=== PATIENT | male | born 1990 | race Caucasian/White ===

== ENCOUNTER 2020-09-16 15:01 | Emergency (ER) | payer BC, SELFPAY ==
[2020-09-16 15:09] VITALS: BP 184/108; PULSE 94; RESP 18; TEMP 36.9; O2SAT 99
[2020-09-16] MEDS: HYDROcodone/acetaminophen (*CRX) 5-325 MG TABLET 1 TAB PO (16:12)
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
== END 2020-09-16 17:00 | disposition home or self-care (01) ==
PROVIDERS: Emergency Provider Emergency Medicine
DX: H60.91 Unspecified otitis externa, right ear (principal)
CPT/HCPCS: 99283; A9270

== ENCOUNTER 2020-09-18 10:55 | Emergency (ER) | payer BC, SELFPAY ==
[2020-09-18 11:00] VITALS: BP 164/94; PULSE 95; RESP 18; TEMP 37; O2SAT 98
--- NOTE | 2020-09-18 11:37 | ED.GENADULT ---
HPI - General Adult General Chief complaint: Ear Stated complaint: right ear pain Time Seen by Provider: 09/18/20 11:26 Source: patient, RN notes reviewed and old records reviewed Mode of arrival: ambulatory Limitations: no limitations History of Present Illness HPI narrative: Patient a 30-year-old male who presents with right ear pain was seen Saturday diagnosed with otitis externa presents today with continued pain noting that the ear wick fell out on the first day patient denies any worsening symptoms continued symptoms are noted to include right ear pain discomfort worse with activity and movement patient denies any vomiting or other URI symptoms Related Data Allergies Allergy/AdvReac Type Severity Reaction Status Date / Time No Known Allergies Allergy Verified 09/18/20 11:03 Review of Systems Review of Systems: All systems reviewed & are unremarkable except as noted in HPI and below PMFSH Social History Social History Smoking status: Never smoker Gender identity (if verbalized by the patient): Male Exam Narrative: Exam Narrative: GENERAL: Well-appearing, well-nourished, and in no acute distress. HEAD: Normocephalic, atraumatic. EYES: PERRLA and EOMI. ENT: Nares clear, no rhinorrhea or epistaxis. Mucous membranes moist. Oropharynx without tonsillar hypertrophy exudate or other lesions. Left ear canal patent no abnormality noted nonbulging TM. Right external canal swollen with dry exudate no surrounding erythema in the periauricular regiones. EXTREMITIES: Normal range of motion. No edema. SKIN: Warm, dry, no rash. NEURO: No focal deficits. Alert and oriented x3. Cranial nerves II through XII grossly intact PSYCH: Normal mood and affect. Course Course Emergency Course: Patient in the room no distress aware of case findings treatment plan diagnosis agreeing to follow-up as instructed Vital Signs Vital signs: Vital Signs Temperature 98.6 F 09/18/20 11:00 Pulse Rate 95 09/18/20 11:00 Respiratory Rate 18 09/18/20 11:00 Blood Pressure 164/94 H 09/18/20 11:00 Pulse Oximetry 98 09/18/20 11:00 Temperature 98.6 F 09/18/20 11:00 Pulse Rate 95 09/18/20 11:00 Respiratory Rate 18 09/18/20 11:00 Blood Pressure 164/94 H 09/18/20 11:00 Pulse Oximetry 98 09/18/20 11:00 Procedures Other Procedure Procedure 1: Other Procedure: Ear wick placed in the right ear Medical Decision Making MDM Narrative Medical decision making narrative: Patient will be discharged with continued plan for follow-up with ENT afebrile nontoxic-appearing earwick placed back into the ear Vital Signs Vital Signs: Vital Signs Temperature 98.6 F 09/18/20 11:00 Pulse Rate 95 09/18/20 11:00 Respiratory Rate 18 09/18/20 11:00 Blood Pressure 164/94 H 09/18/20 11:00 Pulse Oximetry 98 09/18/20 11:00 Temperature 98.6 F 09/18/20 11:00 Pulse Rate 95 09/18/20 11:00 Respiratory Rate 18 09/18/20 11:00 Blood Pressure 164/94 H 09/18/20 11:00 Pulse Oximetry 98 09/18/20 11:00 Discharge Plan Discharge Clinical Impression: Otitis externa Patient Disposition: Home, Self-Care Condition: Stable Instructions: Antibiotic Form, Ear Infection (AC) Additional Instructions: Follow-up with the ENT in the next 3 to 5 days go to ER for shortness of breath, difficulty breathing, chest pain, fever/chills, weakness, nauseau/vomitting, etc. or any other concerns. Stay well-hydrated Take any prescribed medications as directed. Follow patient education sheet If you do not have a drug allergy to tylenol or motrin and can tolerate it then take tylenol or motrin as needed for discomfort/pain. Prescriptions: New amoxicillin 500 mg capsule 500 mg PO Q8H 10 Days Qty: 30 RF: 0 No Action ibuprofen [IBU] 600 mg tablet 600 mg PO QID PRN (Reason: fever or pain) Qty: 7 RF: 0 Follow-up/Referrals: PHYSICIAN,[facility] [[facility]
== END 2020-09-18 11:47 | disposition home or self-care (01) ==
PROVIDERS: Emergency Provider Emergency Medicine
DX: H60.91 Unspecified otitis externa, right ear (principal)
CPT/HCPCS: 99283

== ENCOUNTER 2021-07-28 15:31 | Outpatient (CLI) | payer BC, SELFPAY ==
[2021-07-28 16:35] LABS: HIV 1 P24 AG Negative (Negative); HIV 1/2 AB Negative (Negative)
[2021-08-02 05:11] LABS: Hepatitis A Antibody IgM Nonreactive; Hepatitis B Core Antibody Nonreactive (Nonreactive); Hepatitis B Surface Antigen Nonreactive (Nonreactive); Hepatitis C Signal to Cutoff 0.02 ratio (<1.00); Hepatitis C Virus Antibody Nonreactive (Nonreactive)
== END 2021-07-28 15:32 | disposition home or self-care (01) ==
LOC: CHSLAB 15:34
PROVIDERS: PCP Family Medicine; Visit Provider Family Medicine
DX: A64 Unspecified sexually transmitted disease (principal)
CPT/HCPCS: 36415; 80074; 86703; 87491; 87591; 87661

== ENCOUNTER 2021-09-13 14:35 | Emergency (ER) | payer BC, SELFPAY ==
--- NOTE | ~2021-09-13 | XR_ITS ---
XR clavicle LT DATE: 09/13/2021 16:03 INDICATION: Left clavicle pain TECHNIQUE: AP and angled AP views of left clavicle COMPARISON: None FINDINGS: No fracture, dislocation or bone destruction is evident at the left clavicle. 12.8 mm left clavicular joint space. If there is clinical concern for acromioclavicular sprain, consi jonathan AP before meals views with and without weightbearing. IMPRESSION: No evidence of left clavicular fracture If there is clinical concern for acromioclavicular sprain, consider before meals views with and witho ut weightbearing Reviewed, dictated and finalized at location B. IMPRESSION: No evidence of left clavicular fracture If there is clinical concern for acromioclavicular sprain, consider before meal s views with and without weightbearing
[2021-09-13 14:45] VITALS: BP 165/99; PULSE 89; RESP 20; TEMP 36.8; O2SAT 99
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
[2021-09-13] MEDS: HYDROcodone/acetaminophen (*CRX) 7.5-325 MG TABLET 1 TAB PO (16:37)
[2021-09-13 16:55] VITALS: BP 155/84; PULSE 65; RESP 20; TEMP 36.9; O2SAT 97
== END 2021-09-13 17:05 | disposition home or self-care (01) ==
PROVIDERS: PCP Family Medicine
DX: S43.50XA Sprain of unspecified acromioclavicular joint, initial encounter (principal); S43.52XA Sprain of left acromioclavicular joint, initial encounter; V19.9XXA Pedal cyclist (driver) (passenger) injured in unspecified traffic accident, initial encounter
CPT/HCPCS: 73000; 99283; A4565; A9270

== ENCOUNTER 2023-02-15 10:08 | Outpatient (CLI) | payer OTHER, SELFPAY ==
[2023-02-15 10:21] LABS: Basophils Absolute Auto 0.03 K/mm3 (0.00-0.10); Basophils Percent Auto 0.6 % (0.0-1.0); Eosinophils Absolute Auto 0.32 K/mm3 (0.02-0.50); Eosinophils Percent Auto 6.3 % (1.0-6.0); Hematocrit 48.1 % (40.0-54.0); Hemoglobin 16.4 g/dL (14.0-18.0); Immature Granulocyte Absolute 0.03 K/mm3 (0.00-0.00); Immature Granulocyte Percent A 0.6 % (0.0-0.0); Lymphocytes Absolute Auto 1.62 K/mm3 (1.10-4.50); Mean Corpuscular HGB Conc 34.1 g/dL (32.0-36.0); Mean Corpuscular Hemoglobin 29.9 pg (27.0-31.0); Mean Corpuscular Volume 87.6 fL (78.0-102.0); Mean Platelet Volume 8.8 fl (8.7-11.0); Monocytes Absolute Auto 0.44 K/mm3 (0.10-0.90); Monocytes Percent Auto 8.7 % (2.0-11.0); Neutrophils Absolute Auto 2.6 K/mm3 (1.7-7.2); Neutrophils Percent Auto 51.8 % (50.0-70.0); Platelet Count Result 268 K/mm3 (150-420); Red Blood Count 5.49 M/mm3 (4.70-6.10); Red Cell Distribution Width 13.2 % (11.6-14.4); White Blood Count 5.1 K/mm3 (4.8-10.8)
[2023-02-15 10:35] LABS: Hemoglobin A1C 5.2 % (<5.7)
[2023-02-15 11:05] LABS: Alanine Aminotransferase 45 U/L (16-63); Alkaline Phosphatase 49 U/L (46-116); Anion Gap 6 mmol/L (8-16); Aspartate Amino Transferase 22 U/L (15-37); Bilirubin,Total 0.3 mg/dL (0.00-1.00); Blood Urea Nitrogen 14 mg/dL (7-18); Calcium 8.9 mg/dL (8.5-10.1); Carbon Dioxide 30 mmol/L (21-32); Chloride 105 mmol/L (98-108); Cholesterol 202 mg/dL (0-200); Estimated Glomerular Filt Rate > 60; Glucose 103 mg/dL (70-99); HDL Direct 52 mg/dL (40-60); LDL Cholesterol Calculated 138 mg/dL (<130); Osmolality Calculated 292 mOsm/kg (285-295); Potassium 4.3 mmol/L (3.5-5.1); Sodium 141 mmol/L (136-145); Total Protein 6.8 g/dL (6.4-8.2); Triglycerides 60 mg/dL (0-150)
[2023-02-15 11:22] LABS: Thyroid Stimulating Hormone Reflex 2.14 u/IU/mL (0.36-3.74)
== END 2023-02-15 10:09 | disposition home or self-care (01) ==
PROVIDERS: PCP Family Medicine; Visit Provider Family Medicine
DX: E11.9 Type 2 diabetes mellitus without complications (principal); I10 Essential (primary) hypertension
CPT/HCPCS: 36415; 80053; 80061; 83036; 84443; 85025

== ENCOUNTER 2023-04-04 17:37 | Emergency (ER) | payer OTHER, SELFPAY ==
[2023-04-04] VITALS (25 sets, daily range): BP systolic 127–171; BP diastolic 82–97; PULSE 51–109; RESP 13–37; TEMP 36.9; O2SAT 93–99
--- NOTE | ~2023-04-04 | XR_ITS ---
EXAMINATION: XR chest 1V portable INDICATION: Mid chest pain TECHNIQUE: Portable AP chest at 1800 hours COMPARISON: None available FINDINGS: The lungs are free of acute opacities. No pleural effusion or pneumothorax. The cardiomedia stinal silhouette is normal. IMPRESSION: 1. No acute cardiopulmonary abnormality. Reviewed, dictated and finalized at location F. NA MANAGER
--- NOTE | 2023-04-04 17:45 | ECG_ITS ---
Measurements Intervals [place] Rate: 94 P: 64 MN: 140 QRS: 89 QRSD: 93 T: 11 QT: 357 QTc: 446 Interpretive Statements SINUS RHYTHM MINIMAL Q WAVES- INFERIOR LEADS BORDERLINE ST-T WAVE ABNORMALITY- INFERIOR LEADS BORDERLINE ECG NO PREVIOUS ECG AVAILABLE FOR COMPARISON Electronically Signed On 04-04-2023 19:03:10 [employer] by Epi Mckee D.O.
[2023-04-04] MEDS: ASPIRIN 81 MG CHEWABLE TABLET 324 MG PO (18:12)
[2023-04-04 18:14] LABS: Basophils Absolute Auto 0.02 K/mm3 (0.00-0.10); Basophils Percent Auto 0.3 % (0.0-1.0); Eosinophils Absolute Auto 0.22 K/mm3 (0.02-0.50); Eosinophils Percent Auto 3.7 % (1.0-6.0); Hematocrit 48.1 % (40.0-54.0); Hemoglobin 16.5 g/dL (14.0-18.0); Immature Granulocyte Absolute 0.02 K/mm3 (0.00-0.00); Immature Granulocyte Percent A 0.3 % (0.0-0.0); Lymphocytes Percent Auto 38.9 % (18.0-42.0); Mean Corpuscular HGB Conc 34.3 g/dL (32.0-36.0); Mean Corpuscular Hemoglobin 29.1 pg (27.0-31.0); Mean Corpuscular Volume 84.8 fL (78.0-102.0); Monocytes Absolute Auto 0.63 K/mm3 (0.10-0.90); Monocytes Percent Auto 10.6 % (2.0-11.0); Neutrophils Absolute Auto 2.7 K/mm3 (1.7-7.2); Neutrophils Percent Auto 46.2 % (50.0-70.0); Platelet Count Result 260 K/mm3 (150-420); Red Blood Count 5.67 M/mm3 (4.70-6.10); White Blood Count 5.9 K/mm3 (4.8-10.8)
[2023-04-04] MEDS: SODIUM CHLORIDE 0.9% IV 1,000 ML 999 ML IV CONT (18:29)
[2023-04-04 18:31] LABS: D Dimer 0.19 mg/L (0.19-0.50); Partial Thromboplastin Time 25.9 SEC (23.90-30.70); Prothrombin Time 10.6 Seconds (9.50-12.10)
[2023-04-04 18:39] LABS: Alanine Aminotransferase 40 U/L (16-63); Albumin Level 3.5 g/dL (3.4-5.0); Alkaline Phosphatase 60 U/L (46-116); Anion Gap 10 mmol/L (8-16); Aspartate Amino Transferase 21 U/L (15-37); Bilirubin,Total 0.5 mg/dL (0.00-1.00); Blood Urea Nitrogen 14 mg/dL (7-18); CRP < 0.1 mg/dL (0.0-0.9); Calcium 8.5 mg/dL (8.5-10.1); Carbon Dioxide 27 mmol/L (21-32); Chloride 101 mmol/L (98-108); Estimated CRCL calculation 131 ml/min; Estimated Glomerular Filt Rate > 60; Glucose 116 mg/dL (70-99); Lipase 17 U/L (16-77); NT Pro B Type Natriuretic Pept < 11 pg/mL (0-125); Osmolality Calculated 287 mOsm/kg (285-295); Potassium 3.4 mmol/L (3.5-5.1); Sodium 138 mmol/L (136-145); Total Protein 6.5 g/dL (6.4-8.2); Troponin I 5.5 ng/L (0.00-60.4)
[2023-04-04 18:52] LABS: SARS-CoV-2 RNA PCR Negative (Negative)
[2023-04-04 18:53] LABS: Influenza A QL RT-PCR Negative (Negative); Influenza B QL RT-PCR Negative (Negative); RSV RNA, RT-PCR Negative (Negative)
--- NOTE | 2023-04-04 19:34 | PC.NURSE ---
pt is lying on stretcher in exam room with lights off. pt reports pt is intermittent and he notices it when he palpates his chest. pt reports sharp in nature. pt denies any needs or complaints at this time. pt is awaiting results. will continue to monitor.
--- NOTE | 2023-04-04 21:00 | ED.CHESTPAIN ---
HPI - Chest Pain General Chief Complaint: Chest Pain Stated Complaint: chest pain Time Seen by Provider: 04/04/23 17:45 Source: patient Mode of arrival: ambulatory Limitations: no limitations History of Present Illness HPI narrative: this is a 32-year-old male with no significant past medical history presents with a history of chest discomfort report reproducible with palpation no epigastric pain no diaphoresis no nausea vomiting no fever chills no abdominal pain no flank pain no dysuria. complaint: chest discomfort Onset (ago): day(s) Onset: during rest and other ( Reproducible with palpation) Pain location: subxiphoid Pain radiation: none Severity: mild Quality: other ( reproducible chest pain) Relieving factors: nothing Exacerbating factors: palpation Related Data Home Medications Medication Instructions Recorded Confirmed No Home Medications 04/04/23 04/04/23 Allergies Allergy/AdvReac Type Severity Reaction Status Date / Time No Known Allergies Allergy Verified 04/04/23 18:52 Review of Systems Review of Systems: All systems reviewed & are unremarkable except as noted in HPI and below PMFSH Past Medical History Medical History No active medical problems Surgical History Surgical History No history of previous surgery Social History Social History Smoking packs per day: 1 Smoking cigarettes per day: 20.0 Years smoked: 17 Smoking pack-years: 17.00 Smoking status: Current every day smoker Tobacco type: cigarettes Gender identity (if verbalized by the patient): Male Exam Const: General: healthy appearing Nutritional Appearance: well nourished Orientation/consciousness: patient oriented x3 Limitations: no limitations Eyes: Conjunctivae: conjunctivae normal Pupils: Equal, round and reactive pupils present Neck: Neck: normal visual inspection and no lymphadenopathy Chest: Chest palpation & inspection: normal inspection of the chest Resp: Effort & Inspection: normal respiratory effort Auscultation: clear to auscultation bilaterally Cardio: Rate: regular rate Rhythm: regular rhythm GI: Auscultation: normal bowel sounds Skin: General skin exam: normal color Rashes: no rashes Psych: Mental Status: mental status grossly normal Course Course Emergency Course: Patient with a EKG performed which shows normal sinus rhythm and blood work without any abnormalities troponins negative x2. Vital Signs Vital signs: Vital Signs Temperature 36.9 C 04/04/23 17:45 Pulse Rate 99 04/04/23 17:45 Respiratory Rate 13 04/04/23 17:45 Blood Pressure 151/97 H 04/04/23 17:45 Pulse Oximetry 97 04/04/23 17:45 Oxygen Delivery Room Air 04/04/23 17:45 Temperature 36.9 C 04/04/23 17:45 Pulse Rate 51 L 04/04/23 21:15 Respiratory Rate 17 04/04/23 21:15 Blood Pressure 136/83 04/04/23 20:31 Pulse Oximetry 95 04/04/23 21:15 Oxygen Delivery Room Air 04/04/23 17:45 MDM - Chest Pain Lab Data 04/04/23 18:10 04/04/23 18:10 Labs: Lab Results 04/04/23 04/04/23 Range/Units 18:10 20:40 WBC 5.9 (4.8-10.8) K/mm3 RBC 5.67 (4.70-6.10) M/mm3 Hgb 16.5 (14.0-18.0) g/dL Hct 48.1 (40.0-54.0) % MCV 84.8 (78.0-102.0) fL MCH 29.1 (27.0-31.0) pg MCHC 34.3 (32.0-36.0) g/dL RDW 13.0 (11.6-14.4) % Plt Count 260 (150-420) K/mm3 MPV 9.0 (8.7-11.0) fl Immature Gran % (Auto) 0.3 H (0.0-0.0) % Neut % (Auto) 46.2 L (50.0-70.0) % Lymph % (Auto) 38.9 (18.0-42.0) % [place] % (Auto) 10.6 (2.0-11.0) % Eos % (Auto) 3.7 (1.0-6.0) % Baso % (Auto) 0.3 (0.0-1.0) % Lymph # (Auto) 2.30 (1.10-4.50) K/mm3 [place] # (Auto) 0.63 (0.10-0.90) K/mm3 Eos # (Auto) 0.22 (0.02-0.50) K/mm3 Baso # (Auto) 0.02 (0.00-0
[2023-04-04 21:18] LABS: Troponin I 6.6 ng/L (0.00-60.4)
== END 2023-04-04 21:30 | disposition home or self-care (01) ==
PROVIDERS: Emergency Provider Emergency Medicine; PCP Family Medicine
DX: M94.0 Chondrocostal junction syndrome [Tietze] (principal); F17.210 Nicotine dependence, cigarettes, uncomplicated; Z20.822 Contact with and (suspected) exposure to COVID-19
CPT/HCPCS: 36415; 71045; 80053; 83605; 83690; 83880; 84484; 85025; 85380; 85610; 85730; 86140; 87637; 93005; 96360; 99284; A9270; J7030

== ENCOUNTER 2023-05-29 13:33 | Outpatient (CLI) | payer OTHER, SELFPAY ==
--- NOTE | ~2023-05-29 | XR_ITS ---
EXAMINATION: XR shoulder LT min 2V, XR clavicle LT DATE: 05/29/2023 14:10 INDICATION: Unspecified left shoulder and upper arm injury with left shoulder pain TECHNIQUE: 1. AP internally and externally rotated, AP oblique externally rotated and transscapular Y views of t he left shoulder were obtained. 2. AP and angled AP view of the left clavicle were obtained. COMPARISON: Chest radiograph dated 04/04/2023 and clavicle radiograph dated 09/13/2021 FINDINGS: Normal alignment and joint space the left glenohumeral joint. There is prominent widening of the acro mioclavicular joint space which measures 2.6 cm as well as of the coracoclavicular interval which kaitlyn sures 3.2 cm. Both findings were present but with lesser degrees of displacement on the earlier clavi nelson radiographs dated . There is a small amount of heterotopic ossification projecting near the lateral head of the left clavicle which is likely sequela of the earlier acromioclavicular joint sep aration. No acute fracture identified. Visualized portions of the lungs are clear. IMPRESSION: Chronic grade 3 acromioclavicular joint separation with interval increase in the degree of of widenin g of the left acromioclavicular joint and coracoclavicular interval which could be related to recurre nt injury. No fracture. Reviewed, dictated and finalized at location B. IMPRESSION: Chronic grade 3 acromioclavicular joint separation with interval increase in th e degree of of widening of the left acromioclavicular joint and coracoclavicula r interval which could be related to recurrent injury. No fracture.
== END 2023-05-29 13:34 | disposition home or self-care (01) ==
PROVIDERS: PCP Family Medicine; Visit Provider Orthopaedic Surgery
DX: M25.512 Pain in left shoulder (principal); S49.90XA Unspecified injury of shoulder and upper arm, unspecified arm, initial encounter; X58.XXXA Exposure to other specified factors, initial encounter
CPT/HCPCS: 73000; 73030

== ENCOUNTER 2023-08-16 18:37 | Emergency (ER) | payer OTHER, SELFPAY ==
[2023-08-16 18:50] VITALS: BP 129/67; PULSE 64; RESP 16; TEMP 36.5; O2SAT 97
--- NOTE | 2023-08-16 19:14 | PC.NURSE ---
report to anahi jett
--- NOTE | 2023-08-16 20:05 | ED.SKABFB ---
HPI - Skin/Abscess/Foreign Bdy General Chief complaint: Skin/Abscess/Foreign Body Stated complaint: rash Time Seen by Provider: 08/16/23 18:59 Source: patient Mode of arrival: ambulatory Limitations: no limitations History of Present Illness HPI narrative: patient is a 33-year-old male with a generalized rash around his eyes with swelling and arms and legs. He feels mold in his bed possibly is related to this change. Otherwise he has no reason for getting this dermatitis. Further use had this in the past and he has been given cream which helps. He started the cream again and that has been helpful. complaint: rash Onset (ago): day(s) (1) Tetanus up to date: unsure Location: generalized Severity: moderate Severity scale (1-10): 5 Quality: burning and pruritic Pain Consistency: constant Relieving factors: other ( Topical steroid cream was helpful) Exacerbating factors: none Context: none Associated symptoms: denies other symptoms Treatments prior to arrival: none Related Data Allergies Allergy/AdvReac Type Severity Reaction Status Date / Time No Known Allergies Allergy Verified 04/04/23 18:52 Review of Systems Review of Systems: All systems reviewed & are unremarkable except as noted in HPI and below Constitutional: Constitutional: Reports no additional constitutional complaints Eyes: Eyes: Reports no additional eye complaints ENT: Reports system reviewed and no additional complaints, except as documented Cardiovascular: Cardiovascular: Reports no additional cardiovascular complaints Respiratory: Respiratory: Reports no additional respiratory complaints Gastrointestinal: Gastrointestinal: Reports no additional gastrointestinal complaints Genitourinary: Genitourinary: Reports no additional male genitourinary complaints Musculoskeletal: Musculoskeletal: Reports no additional musculoskeletal complaints Integumentary/Breasts: Skin/Breast: Reports system reviewed and no additional complaints, except as docu Neurologic: Reports system reviewed and no additional complaints, except as documented Psychiatric: Psychiatric: Reports no additional psychiatric complaints Endocrine: Endocrine: Reports no additional endocrine complaints Hematologic/Lymphatic: Hematologic/Lymphatic: Reports no additional hematologic/lymphatic complaints Allergic/Immunologic: Allergic/Immunologic: Reports no additional allergic/immunologic complaints PMFSH Past Medical History Medical History No active medical problems Surgical History Surgical History No history of previous surgery Social History Social History Smoking packs per day: 1 Smoking cigarettes per day: 20.0 Years smoked: 17 Smoking pack-years: 17.00 Smoking status: Current every day smoker Tobacco type: cigarettes Gender identity (if verbalized by the patient): Male Exam Const: General: healthy appearing Nutritional Appearance: well nourished Orientation/consciousness: patient oriented x3 HENMT: Head: normal to inspection Ears: external ears normal Face/Nose/Sinus: Normal external nose present Eyes: Conjunctivae: conjunctivae normal Pupils: Equal, round and reactive pupils present EOM: EOMs intact bilaterally Neck: Neck: normal visual inspection Chest: Chest palpation & inspection: normal inspection of the chest Resp: Effort & Inspection: normal respiratory effort and not labored Auscultation: clear to auscultation bilaterally Cardio: Rate: regular rate Rhythm: regular rhythm Heart sounds: no murmurs GI: Inspection: non-distended GI Palp: Yes Soft to palpation and No Tenderness to palpation present (GI) Auscultation: normal bowel sounds : General: Yes bladder normal to palpation Back/Spine/Pelvis: Back: no CVA tenderness Skin: General skin exam: normal color
[2023-08-16] MEDS: methylPREDNISolone SOD SUCC 125 MG VIAL IM (20:15)
[2023-08-16 20:46] VITALS: BP 136/88; PULSE 80; RESP 20; TEMP 36.6; O2SAT 99
== END 2023-08-16 20:46 | disposition home or self-care (01) ==
PROVIDERS: Emergency Provider Emergency Medicine; PCP Family Medicine
DX: L30.9 Dermatitis, unspecified (principal); F17.210 Nicotine dependence, cigarettes, uncomplicated
CPT/HCPCS: 96372; 99283; J2919

== ENCOUNTER 2023-10-26 14:10 | Emergency (ER) | payer OTHER, SELFPAY ==
--- NOTE | ~2023-10-26 | XR_ITS ---
EXAMINATION: XR chest 1V portable DATE: 10/26/2023 14:37 INDICATION: Left chest pain. TECHNIQUE: A single frontal view of the chest was obtained. COMPARISON: Chest single view 04/04/2023 FINDINGS: There is no pneumonia, pleural effusion, or pneumothorax. The heart size is normal. IMPRESSION: 1. No acute cardiopulmonary disease. Reviewed, dictated and finalized at location A.
[2023-10-26 14:10] VITALS: BP 168/84; PULSE 68; RESP 16; TEMP 36.6; O2SAT 99
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
--- NOTE | 2023-10-26 14:26 | ECG_ITS ---
Test Date: 2023-10-26 14:33:04 Measurements Intervals [place] Rate: 65 P: 12 FL: 136 QRS: 17 QRSD: 94 T: 15 QT: 423 QTc: 440 Interpretive Statements SINUS RHYTHM WITH MARKED SINUS ARRHYTHMIA NORMAL ELECTROCARDIOGRAM No previous ECG available for comparison Electronically Signed On 10-28-2023 14:48:43 CDT by Pardeep Fernandez M.D.
[2023-10-26 14:40] VITALS: PULSE 66; RESP 19; O2SAT 96
[2023-10-26 14:45] VITALS: PULSE 69; RESP 20; O2SAT 96
[2023-10-26 14:46] VITALS: BP 139/89; PULSE 65; O2SAT 95
[2023-10-26 14:58] LABS: Basophils Absolute Auto 0.03 K/mm3 (0.00-0.10); Basophils Percent Auto 0.6 % (0.0-1.0); Eosinophils Absolute Auto 0.22 K/mm3 (0.02-0.50); Eosinophils Percent Auto 4.1 % (1.0-6.0); Hematocrit 45.2 % (40.0-54.0); Hemoglobin 15.8 g/dL (14.0-18.0); Immature Granulocyte Absolute 0.02 K/mm3 (0.00-0.00); Immature Granulocyte Percent A 0.4 % (0.0-0.0); Lymphocytes Absolute Auto 1.57 K/mm3 (1.10-4.50); Lymphocytes Percent Auto 29.2 % (18.0-42.0); Mean Corpuscular Hemoglobin 29.6 pg (27.0-31.0); Mean Corpuscular Volume 84.8 fL (78.0-102.0); Mean Platelet Volume 9.3 fl (8.7-11.0); Monocytes Absolute Auto 0.58 K/mm3 (0.10-0.90); Monocytes Percent Auto 10.8 % (2.0-11.0); Neutrophils Absolute Auto 2.95 K/mm3 (1.70-7.20); Neutrophils Percent Auto 54.9 % (50.0-70.0); Platelet Count Result 244 K/mm3 (150-420); Red Blood Count 5.33 M/mm3 (4.70-6.10); White Blood Count 5.4 K/mm3 (4.8-10.8)
[2023-10-26] MEDS: KETOROLAC 30 MG/ML VIAL (*BKC) IV PUSH (14:58)
[2023-10-26 15:00] VITALS: PULSE 53
[2023-10-26 15:01] VITALS: BP 150/94; PULSE 56; RESP 16
[2023-10-26 15:17] LABS: Alanine Aminotransferase 53 U/L (16-63); Albumin Level 3.7 g/dL (3.4-5.0); Alkaline Phosphatase 54 U/L (46-116); Anion Gap 10 mmol/L (4-12); Aspartate Amino Transferase 41 U/L (15-37); Bilirubin,Total 0.7 mg/dL (0.00-1.00); Blood Urea Nitrogen 14 mg/dL (7-18); Calcium 8.7 mg/dL (8.5-10.1); Carbon Dioxide 26 mmol/L (21-32); Chloride 106 mmol/L (98-108); Estimated CRCL calculation 153 ml/min; Estimated Glomerular Filt Rate > 60; Glucose 100 mg/dL (70-99); Osmolality Calculated 294 mOsm/kg (285-295); Potassium 3.5 mmol/L (3.5-5.1); Sodium 142 mmol/L (136-145); Total Protein 6.3 g/dL (6.4-8.2); Troponin I 4.7 ng/L (0.00-60.4)
[2023-10-26] MEDS: LORazepam (*CRX) 0.5 MG TABLET 1 MG PO (15:28)
== END 2023-10-26 15:35 | disposition home or self-care (01) ==
PROVIDERS: Emergency Provider Emergency Medicine; PCP Family Medicine
DX: R07.9 Chest pain, unspecified (principal); F17.210 Nicotine dependence, cigarettes, uncomplicated
CPT/HCPCS: 36415; 71045; 80053; 84484; 85025; 93005; 96374; 99284; A9270; J1885

== ENCOUNTER 2024-02-21 10:25 | Outpatient (NON) | payer OTHER, SELFPAY | END 2024-02-21 10:26 | disposition home or self-care (01) | PROVIDERS: Visit Provider Family Medicine | DX: L82.1 Other seborrheic keratosis (principal) | CPT/HCPCS: 88305 ==

== ENCOUNTER 2024-04-09 09:30 | Outpatient (RCR) | payer OTHER, SELFPAY ==
--- NOTE | 2024-03-17 16:14 | OPREHPOC ---
Outpatient Therapy Plan of Care This is a Multidisciplinary Plan of Care that may contain components documented by all disciplines (PT, OT, and ST.) PT Problem 1 PT Problem #1 Knowledge Deficit PT Goal 1 Goal / Goal Update Pt to be IND with issued HEP PT Problem 2 PT Problem #2 Pain PT Goal 1 Goal / Goal Update 1. Pt to report shoulder pain no greater than 3/10 in the last week
--- NOTE | 2024-03-17 16:15 | PTOPEVAL1 ---
Assessment and note entered by Mildred Cano, PT, DPT Evaluation Information Assessment Status Evaluation Diagnosis AC joint dislocation ICD-10 Condition Codes (PT) Pain in left shoulder M25.512,Weakness R53.1 Onset 2-3 years Subjective Information Pt reports he had a L shoulder AC joint separation over 2 years ago and it is still not fully functional. He states he cannot exercise, lift heavy things, and is currently out of work d/t his shoulder. 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 He states when he tries to load his arm it feels like it is going to separate again, has just had to one separation. He states he is planning on getting surgery if he does not see enough benefit with therapy. Reported Pain Level Pain Score 0: Self Report Assessment PT Clinical Summary Pt presents to therapy today for his initial evaluation with a diagnosis of a L shoulder AC joint separation. At rest he demonstrates a ~1inch AC joint separation. He demonstrates functional active ROM with a minor increase in pain, with fair functional strength, resistance increases AC joint separation. His functional lifting and carrying ability is limited by pain. Skilled therapy services are indicated to improve stability and to limit compensatory movement patterns. Plan of Care Interventions Electrical Stimulation,Hot Pack/Cold Pack,Manual Therapy,Neuro Re-education,Patient/Caregiver Education,Therapeutic Activities,Therapeutic Exercise PT Services Indicated Yes Treatment Frequency and 1x/wk for 6 visits Duration These treatments will address the objective and functional deficits as defined above. The patient will be advanced safely and appropriately in order for the patient to progress towards his/her prior level of function. Additional exercises will be introduced and as well as a comprehensive home exercise program upon discharge, if needed, ?to ensure carryover of functional gains achieved in the clinic. This treatment plan has been reviewed and agreement upon by the patient.
--- NOTE | 2024-03-26 09:18 | PCPTNOTE ---
Patient canceled due to not having a ride.
--- NOTE | 2024-04-02 10:01 | PCPTNOTE ---
Patient called to cancel due to not having a ride.
--- NOTE | 2024-04-16 10:10 | PCPTNOTE ---
Patient no showed to appointment this date. Called and left voicemail.
--- NOTE | 2024-04-23 10:01 | PTOPDC ---
Assessment and note entered by Mildred Cano, PT, DPT Evaluation Information Assessment Status Discharge - Pt Not Present Diagnosis AC joint dislocation ICD-10 Condition Codes (PT) Pain in left shoulder M25.512,Weakness R53.1 Onset 2-3 years Subjective Information Pt called and cancelled all of his remaining appointments, states he is not ready for surgery currently so does not want to complete his pre surgery therapy now. Assessment PT Clinical Summary Pt completed 3 visits of skilled therapy and will be discharged at this time per his request.
== END 2024-04-23 14:40 | disposition home or self-care (01) ==
LOC: ANHGOSHPT 09:30
PROVIDERS: PCP Family Medicine; Visit Provider Orthopaedic Surgery
DX: S43.102A Unspecified dislocation of left acromioclavicular joint, initial encounter (principal)
CPT/HCPCS: 97110; 97161

== ENCOUNTER 2024-06-24 12:30 | Outpatient (RCR) | payer OTHER, SELFPAY ==
--- NOTE | 2024-06-02 15:19 | OPREHPOC ---
Outpatient Therapy Plan of Care This is a Multidisciplinary Plan of Care that may contain components documented by all disciplines (PT, OT, and ST.) PT Problem 1 PT Problem #1 Knowledge Deficit PT Goal 1 Goal / Goal Update [place] with HEP Target Visit 4 PT Goal 2 Goal / Goal Update Report no pain greater than 1/10 for 2 consecutive weeks Target Visit 4 PT Problem 2 PT Problem #2 Impaired Strength PT Goal 1 Goal / Goal Update Improve left shoulder gross strength to 5/5 Target Visit 4 PT Goal 2 Goal / Goal Update Demonstrate ability to perform closed chain press x 5 without increased shoulder pain to promote improved stability Target Visit 4
--- NOTE | 2024-06-02 15:19 | PTOPEVAL1 ---
Assessment and note entered by Maurizio Jackson, PT Evaluation Information Assessment Status Evaluation Diagnosis AC Joint injury ICD-10 Condition Codes (PT) Pain in left shoulder M25.512 Subjective Information Reports that he continues to have shoulder issues for a couple of years. He was in therapy for 3 weeks and had transportation issues limiting him from coming. Reports that overall since last doing therapy he has been working on strengthening and ROM but he recently broke his band so he did not have one. Reports that strength remains his big focus. Reported Pain Level Pain Score 0: Self Report Assessment PT Clinical Summary Patient presents with strength deficits in overhead activity with notable prominence of AC joint. Notable structural issue with shoulder in exercise activity with needs for consistent repositioning of shoulder for comfort. Patient will benefit form skilled therapy to maximize shoulder strength in preparation for what will likely be surgery for shoulder structural deficits . Plan of Care Interventions Electrical Stimulation,Manual Therapy,Neuro Re- education,Therapeutic Activities,Therapeutic Exercise PT Services Indicated Yes Treatment Frequency and 1x/week for 4 visits Duration These treatments will address the objective and functional deficits as defined above. The patient will be advanced safely and appropriately in order for the patient to progress towards his/her prior level of function. Additional exercises will be introduced and as well as a comprehensive home exercise program upon discharge, if needed, ?to ensure carryover of functional gains achieved in the clinic. This treatment plan has been reviewed and agreement upon by the patient.
--- NOTE | 2024-06-24 14:17 | OPREHPOC ---
Outpatient Therapy Plan of Care This is a Multidisciplinary Plan of Care that may contain components documented by all disciplines (PT, OT, and ST.) PT Problem 1 PT Problem #1 Knowledge Deficit PT Goal 1 Goal / Goal Update Cut Off with HEP 06/24/24: 1. met Target Visit 4 PT Goal 2 Goal / Goal Update Report no pain greater than 1/10 for 2 consecutive weeks 06/24/24: 1. not met, 5/10 Target Visit 4 PT Problem 2 PT Problem #2 Impaired Strength PT Goal 1 Goal / Goal Update Improve left shoulder gross strength to 5/5 06/24/24: 1. progressing Target Visit 4 PT Goal 2 Goal / Goal Update Demonstrate ability to perform closed chain press x 5 without increased shoulder pain to promote improved stability 06/24/24: 1. met Target Visit 4
--- NOTE | 2024-06-24 14:17 | PTOPDC ---
Assessment and note entered by Mildred Cano, PT, DPT Evaluation Information Assessment Status Discharge Diagnosis AC Joint injury ICD-10 Condition Codes (PT) Pain in left shoulder M25.512 Subjective Information Pt states he is doing well, he did a shoulder workout on Saturday and is still sore from this. States his shoulder feels better since his workout . Reported Pain Level Pain Score 0: Self Report Assessment PT Clinical Summary Patient presents to therapy today for his progress report following 4 visits of skilled therapy. He demonstrates improved strength and stability during daily exercises. Has progressed to perform his HEP IND. He plans to continue with his strengthening program until he has surgery, hopefully in a month. Pt wishes to be discharged at this time.
== END 2024-08-25 10:45 | disposition home or self-care (01) ==
LOC: ANHGOSHPT 12:30
PROVIDERS: PCP Family Medicine; Visit Provider Orthopaedic Surgery
DX: M25.512 Pain in left shoulder (principal); S49.92XS Unspecified injury of left shoulder and upper arm, sequela
CPT/HCPCS: 97110; 97161; 97530

== ENCOUNTER 2024-08-07 13:34 | Outpatient (CLI) | payer OTHER, SELFPAY ==
--- OUTSIDE RECORDS SUMMARY | 2024-08-07 13:37 | XMS_ITS | Referral Summary ---
Author Organization [facility] Address [address] [place] [address] Care Team Providers Care Corporate Securities Research Analyst Name Role Phone Rose Laureano Unavailable Harris Fagan DO Primary Care Provider Encounters Date Type Department Care Team Description 07/22/2024 4:10 PM CDT - 07/22/2024 11:59 PM CDT Hospital Encounter [facility] [address] [place] [id number] Acromioclavicular joint injury, left, sequela Discharge Disposition: Discharge to home or self care 07/22/2024 3:30 PM CDT Office Visit [facility] Orthopaedic Surgery [address] [place] [address] [address]nd [address] [place] [phone] Nivia Dempsey MD Acromioclavicular joint injury, left, sequela (Primary Dx) 06/05/2024 Telephone [facility] Orthopaedic Surgery [address] [place] [address] Advanced Medicine 12th [place] [address] [place] [phone] Nivia Dempsey MD 05/20/2024 Orders Only [facility] Orthopaedic Surgery [address] [place] [address] 2nd [address] [place] [phone] Nivia Dempsey MD Acromioclavicular joint injury, left, sequela (Primary Dx); Left shoulder pain, unspecified chronicity from Last 3 Months Allergies Active Allergy Reactions Criticality Noted Date Comments Avocado Chest tightness Medium 07/30/2024 Overproduction of saliva Banana Chest tightness Medium 07/30/2024 Overproduction of saliva Shellfish Containing Products Anaphylaxis High 07/30/2024 Medications triamcinolone (KENALOG) 0.5 % cream Apply topically as needed for rash or irritation Active ibuprofen 200 mg tab/cap Take 2 tablet/capsule (400 mg total) by mouth every 8 (eight) hours as needed for pain Active multivitamin tabletIndicatio ns:Vitamin Deficiency Prevention Take 1 tablet by mouth every morning Active mupirocin (BACTROBAN) 2 % ointment Apply a small amount to the inside of each nostril using a clean Q-tip for each nostril twice a day for 5 days prior to surgery. 22 g Active Active Problems Problem Noted Date Diagnosed Date Acromioclavicular joint injury, left, sequela Social History Tobacco Use Types Packs/Day Years Used Date Smoking Tobacco: Former Cigarettes 2 25.2 S tarted: 2000 Smokeless Tobacco: Never Tobacco Cessation:Counseling Given: Not Answered Alcohol Use Standard Drinks/Week Comments Not Currently 0 (1 standard drink = 0.6 oz pur e alcohol) AUDIT-C Answer Date Recorded Q1: How often do you have a drink containing alc ohol? 2-3 times a week 07/30/2024 Q2: How many drinks containi ng alcohol do you have on a typical day when you are drinking? 10 or more 07/30/2024 Q3: How often do you have si x or more drinks on one occasion? Weekly 07/30/2024 Sex and Gender Information Value Date Recorded Sex Assigned at Not on file Legal Sex Male 1:30 PM SPA ATTENDANT Gender Identity Male 07/19/2024 8:05 PM CDT Sexual Orientation Straight 07/19/2024 8: 05 PM CDT Last Filed Vital Signs Vital Sign Reading Time Taken Comments Blood Pressure 170/89 01/22/2020 8:10 PM SPA ATTENDANT Pulse 90 01/22/2020 8:10 PM SPA ATTENDANT Temperature 36.8 C (98.2 F) 01/22/2020 7:00 PM SPA ATTENDANT Respiratory Rate 16 01/22/2020 8:10 PM SPA ATTENDANT Oxygen Saturation 100% 01/22/2020 8:10 PM SPA ATTENDANT Inhaled Oxygen Concentration - - Weight 127 kg (280 lb) 07/30/2024 3:45 PM CDT Height 177.8 cm (5' 10 ) 07/30/2024 3:45 PM CDT Body Mass Index 40.18 07/30/2024 3:45 PM CDT Plan of Treatment Upcoming Encounters Date Type Department Care Team (Latest Contact Info) Description 08/20/2024 10:15 AM CDT Hospital Encounter [facility] [address] [place] [address] Nivia Dempsey MD [address] [place] [address] 08/20/2024 10:15 AM CDT Anesthesia Event [facility] [address] [place] [address] Jolynn Schaefer NP [id number] [place] [address] 08/20/2024 10:15 AM CDT - 08/20/2024 1:00 PM CDT Surgery [facility] [address] [place] [address] Nivia Dempsey MD [address] [place] [address] Left Shoulder Acromioclavicular Joint Reconstruction with ALLOgraft Scheduled Procedures Name Priority Associated Diagnoses Date/Ti me RECONSTRUCTION ACROMIOCLAVICULAR JOINT Acromioclavicular joint injury, left, sequela 08/20/2024 10:15 AM CDT Procedures Procedure Name Priority Date/Time Associated Diagnosis Comments XR SHOULDER LEFT 2 OR MORE VIEWS Schedule Routine, Read Routine (OP Routine) 07/22/2024 4:17 PM CDT Acromioclavicular joint injury, left, sequela from Last 3 Months Results * XR Shoulder Left 2 or More Views (07/22/2024 4:17 PM CDT) Anatomical Region Laterality Modality Upper Extremities, Shoulder Left Comp uted Radiography 07/22/2024 4:25 PM CDT Impressions 07/22/2024 4:25 PM CDT Unchanged left acromial clavicular separation. Electronically signed by: Andrés Naik M.D. Narrative 07/22/2024 4:25 PM CDT XR SHOULDER LEFT 2 OR MORE VIEWS HISTORY: Left shoulder pain. FINDINGS: 4 views of the left shoulder are obtained and compared with 02/26/2024. There is no acute fracture. Unchanged acromioclavicular separation. The glenohumeral joint space is preserved. Alignment and soft tissues are unchanged. Procedure Note Andrés Naik MD - 07/22/2024 XR SHOULDER LEFT 2 OR MORE VIEWS HISTORY: Left shoulder pain. FINDINGS: 4 views of the left shoulder are obtained and compared with 02/26/2024. There is no acute fracture. Unchanged acromioclavicular separation. The glenohumeral joint space is preserved. Alignment and soft tissues are unchanged. IMPRESSION: Unchanged left acromial clavicular separation. Electronically signed by: Andrés Naik M.D. Nivia Dempsey MD IMG XR PROCEDURES Fin al Result from Last 3 Months Insurance [facility] Care Teams Corporate Securities Research Analyst Relationship Specialty Start Date End Date Harris Fagan DO [address] [place] [address] PCP - General Family Medicine 09/26/23 Rose Laureano Chalk Tester Addiction Medicine 03/08/20
--- OUTSIDE RECORDS SUMMARY | 2024-08-07 13:37 | XMS_ITS | Clinical Summary ---
Author Organization [facility] Address [address] [place] [address] Care Team Providers Care Forest Management Teacher Name Role Phone Rose Laureano Unavailable Unavailable Harris Fagan DO Primary Care Provider Allergies Active Allergy Reactions Criticality Noted Date Comments Avocado Chest tightness Medium 07/30/2024 Overproduction of saliva Banana Chest tightness Medium 07/30/2024 Overproduction of saliva Shellfish Containing Products Anaphylaxis High 07/30/2024 Medications triamcinolone (KENALOG) 0.5 % cream Apply topically as needed for rash or irritation 5 Active ibuprofen 200 mg tab/cap Take 2 [...] 5 days prior to surgery. 22 g 5 Active Active Problems Problem Noted Date Diagnosed Date Acromioclavicular joint injury, left, sequela Encounters Date Type Department Care Team Description 07/22/2024 4:10 PM CDT - 07/22/2024 11:59 PM CDT Hospital Encounter [facility] [address] [place] [id number] Acromioclavicular joint injury, left, sequela Discharge Disposition: Discharge to home or self care 07/22/2024 3:30 PM CDT Office Visit [facility] Orthopaedic Surgery [address] [place] [address] 2nd [address] [place] [phone] Nivia Dempsey MD Acromioclavicular joint injury, left, sequela (Primary Dx) 06/05/2024 Telephone [facility] Orthopaedic Surgery [address] [facility] 12th [place] [address] [place] [phone] Nivia Dempsey MD 05/20/2024 Orders Only [facility] Orthopaedic Surgery [address] [place] [address] 2nd [address] [place] [phone] Nivia Dempsey MD Acromioclavicular joint injury, left, sequela (Primary Dx); Left shoulder pain, unspecified chronicity from Last 3 Months Medical History Medical History Date Comments Anxiety Social History Tobacco Use Types Packs/Day Years Used Date Smoking Tobacco: Former Cigarettes 2 25.2 S tarted: 1999 Smokeless Tobacco: Never Tobacco Cessation:Counseling Given: Not [...] on file Legal Sex Male 1:30 PM MACHINE FEEDER FLOORPERSON Gender Identity Male 07/19/2024 8:05 PM CDT Sexual Orientation Straight 07/19/2024 8: 05 PM CDT Obstetrics History Last Filed Vital Signs Vital Sign Reading Time Taken Comments Blood Pressure 170/89 01/22/2020 8:10 PM MACHINE FEEDER FLOORPERSON Pulse 90 01/22/2020 8:10 PM MACHINE FEEDER FLOORPERSON Temperature 36.8 C (98.2 F) 01/22/2020 7:00 PM MACHINE FEEDER FLOORPERSON Respiratory Rate 16 01/22/2020 8:10 PM MACHINE FEEDER FLOORPERSON Oxygen Saturation 100% 01/22/2020 8:10 PM MACHINE FEEDER FLOORPERSON Inhaled Oxygen Concentration - - Weight 127 kg (280 lb) 07/30/2024 3:45 PM CDT Height 177.8 cm (5' 10 ) 07/30/2024 3:45 PM CDT Body Mass Index 40.18 07/30/2024 3:45 PM CDT Plan of Treatment Upcoming Encounters Date Type Department Care Team (Latest Contact Info) Description 08/20/2024 10:15 AM CDT Hospital Encounter [facility] [address] [place] [id number] Nivia Dempsey MD [address] [place] [address] 08/20/2024 10:15 AM CDT Anesthesia Event [facility] [address] [place] [phone] Jolynn Schaefer NP [id number] [place] [address] 08/20/2024 10:15 AM CDT - 08/20/2024 1:00 PM CDT Surgery [facility] [address] [place] [address] Nivia Dempsey MD [address] [place] [address] Left Shoulder Acromioclavicular Joint Reconstruction with ALLOgraft Scheduled Procedures Name Priority Associated Diagnoses Date/Ti me RECONSTRUCTION ACROMIOCLAVICULAR JOINT Acromioclavicular joint injury, left, sequela 08/20/2024 10:15 AM CDT Health Maintenance Due Date Last Done Comments Depression Screening 1988 Hepatitis C Screening 1988 DTaP/Tdap/Td Vaccine (1 - Tdap) 1999 Varicella Vaccines (1 of 2 - 13+ 2-dose series) 2001 Hepatitis B Screening 2006 Regular Well Visit/Exam 18-64 2006 Influenza Vaccine (Season Ended) 2024 HPV Vaccines Aged Out No longer eligi ble based on patient's age to complete this topic Pneumococcal vaccine <65 Aged Out No longer eligible based on patient's age to complete this topic Procedures Procedure Name Priority Date/Time Associated Diagnosis [...] al Result from Last 3 Months Insurance [facility] Care Teams Forest Management Teacher Relationship Specialty Start Date End Date Harris Fagan DO [address] [place] [address] PCP - General Family Medicine 09/26/23 Rose Laureano Hop Picker Addiction Medicine 03/08/20
[2024-08-07 13:54] LABS: Urine Cotinine NEGATIVE (Negative)
== END 2024-08-07 13:35 | disposition home or self-care (01) ==
LOC: CHSLAB 13:35
PROVIDERS: PCP Family Medicine; Visit Provider Family Medicine
DX: Z01.818 Encounter for other preprocedural examination (principal)
CPT/HCPCS: 80307

== ENCOUNTER 2024-08-14 11:56 | Outpatient (CLI) | payer OTHER, SELFPAY ==
--- OUTSIDE RECORDS SUMMARY | 2024-08-14 11:58 | XMS_ITS | Encounter Summary ---
Author Organization [facility] Address [address] [place] [address] Phone Care Team Providers Care Rug Hooker Name Role Phone Rose Laureano Josh Parrish DO Primary Care Provider Encounter Details Date Type Department Care Team (Late st Contact Info) Description 08/13/[address] [facility] Orthopaedic Surgery [address] 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 I apologized that this was not relayed to him on his preop phone assessment (he thought that he had been cleared to proceed after speaking with CPAP) and that I wasn't aware of their request until after he had his nicotine screening on 08/07/24. documented in this encounter Plan of Treatment Upcoming Encounters Date Type Department Care Team (Latest Contact Info) Description 08/20/2024 10:15 AM CDT Hospital Encounter [facility] [address] [place] [address] Nivia Dempsey MD [address] [place] [address] 08/20/2024 10:15 AM CDT Anesthesia Event [facility] [address] [place] [address] Jolynn Schaefer NP [phone] [place] [address] 08/20/2024 10:15 AM CDT - 08/20/2024 1:00 PM CDT Surgery [facility] [address] [place] [address] Nivia Dempsey MD [address] [place] [address] Left Shoulder Acromioclavicular Joint Reconstruction with ALLOgraft Scheduled Orders Name Type Priority Associated Diagnoses Orde r Schedule Drug screen, urine Lab Routine Acromioclavicular joint injury, left, sequela Left shoulder pain, unspecified chronicity Expected: 08/16/2024, Expires: 08/13/2025 Scheduled Procedures Name Priority Associated Diagnoses Date/Ti me RECONSTRUCTION ACROMIOCLAVICULAR JOINT Acromioclavicular joint injury, left, sequela 08/20/2024 10:15 AM CDT documented as of this encounter Visit Diagnoses Diagnosis Acromioclavicular joint injury, left, sequela- Primary Acromioclavicular joint injury, left, sequela- Primary Left shoulder pain, unspecified chronicity Acromioclavicular joint injury, left, sequela documented in this encounter Care Teams Rug Hooker Relationship Specialty Start Date End Date Harris Fagan DO [address] [place] [address] PCP - General Family Medicine 09/26/23 Rose Laureano Repairer [employer] Addiction Medicine 03/08/20 documented as of this encounter
--- OUTSIDE RECORDS SUMMARY | 2024-08-14 11:58 | XMS_ITS | Referral Summary ---
Author Organization [facility] Address [address] [place] [address] Care Team Providers Care Gas Regulator Repairer Name Role Phone Rose Laureano Josh Parrish DO Primary Care Provider Encounters Date Type Department Care Team Description 08/13/2024 Telephone [facility] Orthopaedic Surgery [address] [place] [address] 2nd Floor [address] [place] [address] Nivia Dempsey MD 07/22/2024 4:10 PM CDT - 07/22/2024 11:59 PM CDT Hospital Encounter [facility] [address] [place] [address] Acromioclavicular joint injury, left, sequela Discharge Disposition: Discharge to home or self care 07/22/2024 3:30 PM CDT Office Visit [facility] Orthopaedic Surgery [address] [place] [address] 2nd Floor [address] [place] [address] Nivia Dempsey MD Acromioclavicular joint injury, left, sequela (Primary Dx) 06/05/2024 Telephone [facility] Orthopaedic Surgery [address] [facility] 12th [place] [address] [place] [address] Nivia Dempsey MD 05/20/2024 Orders Only [facility] Orthopaedic Surgery [address] [place] [address] 2nd Floor [address] [place] [address] Nivia Dempsey MD Acromioclavicular joint injury, left, [...] on file Legal Sex Male 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 MAINTENANCE SUPERVISOR Gender Identity Male 07/19/2024 8:05 PM CDT Sexual Orientation Straight 07/19/2024 8: 05 PM CDT Last Filed Vital Signs Vital Sign Reading Time Taken Comments Blood Pressure 170/89 01/22/2020 8:10 PM ANIMAL MAINTENANCE SUPERVISOR Pulse 90 01/22/2020 8:10 PM ANIMAL MAINTENANCE SUPERVISOR Temperature 36.8 C (98.2 F) 01/22/2020 7:00 PM ANIMAL MAINTENANCE SUPERVISOR Respiratory Rate 16 01/22/2020 8:10 PM ANIMAL MAINTENANCE SUPERVISOR Oxygen Saturation 100% 01/22/2020 8:10 PM ANIMAL MAINTENANCE SUPERVISOR Inhaled Oxygen Concentration - - Weight 127 kg (280 lb) 07/30/2024 3:45 PM CDT Height 177.8 cm (5' 10) 07/30/2024 3:45 PM CDT Body Mass Index 40.18 07/30/2024 3:45 PM CDT Plan of Treatment Upcoming Encounters Date Type Department Care Team (Latest Contact Info) Description 08/20/2024 10:15 AM CDT Hospital Encounter [facility] [address] [place] [address] Nivia Dempsey MD [address] [place] [address] 08/20/2024 10:15 AM CDT Anesthesia Event [facility] [address] [place] [address] Jolynn Schaefer NP [phone] [place] [address] 08/20/2024 10:15 AM CDT - 08/20/2024 1:00 PM CDT Surgery [facility] [address] [place] [address] Nivia Dempsey MD [address] [place] [address] Left Shoulder Acromioclavicular Joint Reconstruction with ALLOgraft [...] al Result from Last 3 Months Insurance [facility] Member Subscriber Plan / [facility] Name:Julio De La Fuente Relation to Subscriber:Self Name:Julio De La Fuente Payer ID:[id number] ([facility]) Group ID:Not on file Type:MEDICAID RISK OTHER Address: [address] [address] [facility] Care Teams Gas Regulator Repairer Relationship Specialty Start Date End Date Harris Fagan DO [address] [place] [address] PCP - General Family Medicine 09/26/23 Rose Laureano Fertilizer Processing Supervisor Addiction Medicine 03/08/20
--- OUTSIDE RECORDS SUMMARY | 2024-08-14 11:58 | XMS_ITS | Clinical Summary ---
Author Organization [facility] Address [address] [place] [address] Care Team Providers Care Quality Measurement Specialist Name Role Phone Rose Laureano Unavailable Unavailable [...] Type Department Care Team Description 08/13/2024 Telephone [facility] Orthopaedic Surgery [address] [facility] 2nd Floor [address] [place] [address] Nivia Dempsey MD 07/22/2024 4:10 PM CDT - 07/22/2024 11:59 PM CDT Hospital Encounter [facility] [address] [place] [address] Acromioclavicular joint injury, left, sequela Discharge Disposition: Discharge to home or self care 07/22/2024 3:30 PM CDT Office Visit [facility] Orthopaedic Surgery [address] [place] [address] 2nd Floor [address] [place] [address] Nivia Dempsey MD Acromioclavicular joint injury, left, sequela (Primary Dx) 06/05/2024 Telephone [facility] Orthopaedic Surgery [address] [facility] 12th [place] [address] [place] [address] Nivia Dempsey MD 05/20/2024 Orders Only [facility] Orthopaedic Surgery [address] [place] [address] 2nd Floor [address] [place] [address] Nivia Dempsey MD Acromioclavicular joint injury, left, [...] on file Legal Sex Male 1:30 PM FLIGHT TEST DATA ACQUISITION TECHNICIAN Gender Identity Male 07/19/2024 8:05 PM CDT Sexual Orientation Straight 07/19/2024 8: 05 PM CDT Obstetrics History Last Filed Vital Signs Vital Sign Reading Time Taken Comments Blood Pressure 170/89 01/22/2020 8:10 PM FLIGHT TEST DATA ACQUISITION TECHNICIAN Pulse 90 01/22/2020 8:10 PM FLIGHT TEST DATA ACQUISITION TECHNICIAN Temperature 36.8 C (98.2 F) 01/22/2020 7:00 PM FLIGHT TEST DATA ACQUISITION TECHNICIAN Respiratory Rate 16 01/22/2020 8:10 PM FLIGHT TEST DATA ACQUISITION TECHNICIAN Oxygen Saturation 100% 01/22/2020 8:10 PM FLIGHT TEST DATA ACQUISITION TECHNICIAN Inhaled Oxygen Concentration - - Weight 127 kg (280 lb) 07/30/2024 3:45 PM CDT Height 177.8 cm (5' 10) 07/30/2024 3:45 PM CDT Body Mass Index 40.18 07/30/2024 3:45 PM CDT Plan of Treatment Upcoming Encounters Date Type Department Care Team (Latest Contact Info) Description 08/20/2024 10:15 AM CDT Hospital Encounter [facility] [address] [place] [address] Nivia Dempsey MD [address] [place] [address] 08/20/2024 10:15 AM CDT Anesthesia Event [facility] [address] [place] [address] Jolynn Schaefer NP [phone] [place] [address] 08/20/2024 10:15 AM CDT - 08/20/2024 1:00 PM CDT Surgery [facility] [address] [place] [address] Nivia Dempsey MD [address] [place] [address] Left Shoulder Acromioclavicular Joint Reconstruction with ALLOgraft [...] al Result from Last 3 Months Insurance [facility]onto [facility] Care Teams Quality Measurement Specialist Relationship Specialty Start Date End Date Harris Fagan DO [address] [place] [address] PCP - General Family Medicine 09/26/23 Rose Laureano A/C Technician Addiction Medicine 03/08/20
[2024-08-14 12:26] LABS: Amphetamine Screen Urine Negative (Negative); Barbiturate Screen Urine Negative (Negative); Benzodiazepines Screen Urine Negative (Negative); Cannabinoid Screen Urine Negative (Negative); Cocaine Screen Urine Negative (Negative); Methadone Screen Urine Negative (Negative); Opiate Screen Urine Negative (Negative); Phencyclidine Screen Urine Negative (Negative)
== END 2024-08-14 11:57 | disposition home or self-care (01) ==
LOC: CHSLAB 11:56
PROVIDERS: PCP Family Medicine; Visit Provider Family Medicine
DX: F39 Unspecified mood [affective] disorder (principal)
CPT/HCPCS: 80307

== ENCOUNTER 2024-08-24 21:02 | Emergency (ER) | payer OTHER, SELFPAY ==
--- NOTE | ~2024-08-24 | CT_ITS ---
EXAMINATION: CTA chest PE protocol DATE: 08/24/2024 22:14 INDICATION: chest pain TECHNIQUE: Computed tomography angiography (CTA) of the chest was performed with 100 mL Omnipaque-350 intravenous contrast timed to evaluate the pulmonary arteries. Coronal maximum intensity projection 3D-reconstructions were created by the technologist. The dose-length product (DLP) was 1118.14 mGy-cm . Automated exposure control and iterative reconstruction technique were employed. COMPARISON: X-ray chest 10/26/2023. FINDINGS: Considerable respiratory motion artifact is present. There is beam hardening from left arm down posit ioning. Lung parenchyma and airways: Low volumes. No focal consolidation or pneumothorax. Patent airways. Pleura: Unremarkable. Thoracic inlet, axillae and chest wall: Post surgical changes about the left shoulder. Bilateral slig htly asymmetric gynecomastia, greater on the right. Thoracic aorta: No significant dilation. No dissection. Mediastinum: Normal. Heart and pericardium: Cardiomegaly. Flattening of the interventricular septum. Coronary artery calcifications: Mild. Upper abdomen: Ill-defined, approximately 1.4 cm hyperenhancing focus in the right liver lobe. Bones: No acute osseous finding. Pulmonary arteries: Study quality: Study severely limited by respiratory motion artifact, low lung vo lumes, and beam hardening such that segmental and subsegmental pulmonary arteries are not well visual ized. No central pulmonary emboli detected. IMPRESSION: Examination limited with respect to diagnose pulmonary embolism, as detailed above. Subsegmental and segmental pulmonary arteries not well visualized. No central embolus detected. No acute process detected in the chest. Cardiomegaly. CT evidence suggestive of right heart strain and pulmonary hypertension. Consider echoc ardiography. Asymmetric gynecomastia on the right, recommend nonemergent but timely evaluation with mammography an d breast ultrasound. Ill-defined 1.4 cm hyperenhancing focus in the right liver lobe, possibly representing a hemangioma. Recommend nonemergent but timely outpatient liver MRI or CT without and with contrast for further denisse racterization. Reviewed, dictated and finalized at location K. IMPRESSION: Examination limited with respect to diagnose pulmonary embolism, as detailed ab ove. Subsegmental and segmental pulmonary arteries not well visualized. No cent ral embolus detected. No acute process detected in the chest. Cardiomegaly. CT evidence suggestive of right heart strain and pulmonary hypert ension. Consider echocardiography. Asymmetric gynecomastia on the right, recommend nonemergent but timely evaluati on with mammography and breast ultrasound. Ill-defined 1.4 cm hyperenhancing focus in the right liver lobe, possibly repre senting a hemangioma. Recommend nonemergent but timely outpatient liver MRI or CT without and with contrast for further characterization.
[2024-08-24 21:05] VITALS: BP 158/100; PULSE 72; RESP 18; TEMP 36.6; O2SAT 100
--- NOTE | 2024-08-24 21:05 | ECG_ITS ---
Test Date: 2024-08-24 21:19:23 Measurements Intervals [place] Rate: 61 P: 19 DC: 134 QRS: 18 QRSD: 98 T: 1 QT: 400 QTc: 406 Interpretive Statements SINUS RHYTHM BASELINE ARTIFACT- I, II, III, AVR, AVL, AVF, V4-V6 NORMAL ECG Compared to ECG 10/26/2023 14:33:04 NO SIGNIFICANT CHANGE Electronically Signed On 08-25-2024 06:28:49 CDT by Epi Mckee D.O.
--- OUTSIDE RECORDS SUMMARY | 2024-08-24 21:05 | XMS_ITS | Referral Summary ---
Author Organization [facility] Address [address] [place] [address] Care Team Providers Care Kosher Dietary Service Manager Name Role Phone Rose Laureano Josh Parrish DO Primary Care Provider Encounters Date Type Department Care Team Description 08/20/2024 10:15 AM CDT - 08/20/2024 1:00 PM CDT Surgery [facility] at the Orth[facility] [address] [address] Nivia Dempsey MD Left Shoulder Acromioclavicular Joint Reconstruction with ALLOgraft 08/20/2024 10:05 AM CDT Anesthesia Event [facility] [address] [address] Eufemia Marion MD [place], Amanda Marie, NP 08/20/2024 6:59 AM CDT - 08/20/2024 2:51 PM CDT Hospital Encounter [facility] [address] [place] [address] Nivia Dempsey MD Acromioclavicular joint injury, left, sequela (Primary Dx); AC separation, type 3, left, sequela Discharge Disposition: Discharge to home or self care 08/13/2024 Telephone [facility] Orthopaedic Surgery [address] [place] [address] 2nd Floor [address] [place] [address] Nivia Dempsey MD 07/22/2024 4:10 PM CDT - 07/22/2024 11:59 PM CDT Hospital Encounter [facility] [address] [place] [address] Acromioclavicular joint injury, left, sequela Discharge Disposition: Discharge to home or self care 07/22/2024 3:30 PM CDT Office Visit [facility] Orthopaedic Surgery [address] [facility] 2nd Floor [address] [place] [address] Nivia Dempsey MD Acromioclavicular joint injury, left, sequela (Primary Dx) 06/05/2024 Telephone [facility] Orthopaedic Surgery [address] [facility] 12th [place] [address] [place] [address] Nivia Dempsey MD from Last 3 Months Allergies Active Allergy Reactions Criticality Noted Date Comments Avocado Chest tightness Medium 07/30/2024 Overproduction of saliva Banana Chest tightness Medium 07/30/2024 Overproduction of saliva Shellfish Containing Products Anaphylaxis High 07/30/2024 Medications triamcinolone (KENALOG) 0.5 % cream Apply topically as needed for rash or irritation 5 Active multivitamin tabletIndicati ons:Vitamin Deficiency Prevention Take 1 tablet by mouth every morning Active mupirocin (BACTROBAN) 2 % ointment Apply a small amount to the inside of each nostril using a clean Q-tip for each nostril twice a day for 5 days prior to surgery. 22 g 5 Active ketorolac (TORADOL) 10 mg tablet Take 1 tablet (10 mg total) by mouth every 6 (six) hours as needed for pain 12 tablet 5 Active oxyCODONE (ROXICODONE) 5 mg immediate release tabletIndicati ons:Pain Take 1 tablet (5 mg total) by mouth every 6 (six) hours as needed for pain 20 tablet 5 Active senna-docusate (PERICOLACE) 8.6-50 mg Take 1 tablet by mouth 2 (two) times a day as needed for constipation 20 tablet Active ibuprofen 200 mg tab/cap Take 2 tablet/capsule (400 mg total) by mouth every 8 (eight) hours as needed for pain 025 Discontin ued(Stop Taking at Discharge ) Active Problems Problem Noted Date Diagnosed Date AC separation, type 3, left, sequela 08/20/2024 Acromioclavicular joint injury, left, sequela Social History [...] more drinks on one occasion? Weekly 07/30/2024 Personal Safety Answer Date Recorded Have you ever been in or are you currently in a harmful physical or emotional relationship or is someone making you feel afraid or unsafe? 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 Gender Identity Male 07/19/2024 8:05 PM CDT Sexual Orientation Straight 07/19/2024 8: 05 PM CDT Last Filed Vital Signs Vital Sign Reading Time Taken Comments Blood Pressure 112/67 08/20/2024 2:05 PM CDT Pulse 91 08/20/2024 2:30 PM CDT Temperature 36.7 C (98.1 F) 08/20/2024 2:30 PM CDT Respiratory Rate 23 08/20/2024 2:30 PM CDT Oxygen Saturation 97% 08/20/2024 2:30 PM CDT Inhaled Oxygen Concentration - - Weight 122.5 kg (270 lb) 08/20/2024 7:20 AM CDT Height 177.8 cm (5' 10) 07/30/2024 3:45 PM CDT Body Mass Index 38.74 07/30/2024 3:45 PM CDT Plan of Treatment Not on file Medical Devices Implanted Type Area Grit Removal Operator Device Identifier Shelf Expiration Date Model / Serial / Lot Allosource Allograft Frozen Irradiate Graft Soft Tissue Semitendinosus [id number] - [id number] Implanted:Qty: 1 on 08/20/2024 by Nivia Dempsey MD at [facility] Left: Acromial Process [employer]osource 07/21/2029 [id number] / / [id number] Procedures Procedure Name Priority Date/Time Associated Diagnosis Comments [place] AN PROCEDURE PLACEHOLDER Routine 08/20/2024 10:12 AM CDT WV AN ELECTIVE SUPRAGLOTTIC AIRWAY Routine 08/20/2024 10:12 AM CDT RECONSTRUCTION ACROMIOCLAVICULAR JOINT 08/20/2024 10:08 AM CDT Acromioclavicular joint injury, left, sequela Special Needs Beach Chair with Trimano, Mini C-Arm, Arthrex, Semi-T Allograft, Breg Sling Shot with Pillow W[place] AN PROCEDURE PLACEHOLDER Routine 08/20/2024 9:53 AM CDT WV AN PROCEDURE PLACEHOLDER Routine 08/20/2024 9:53 AM CDT DRUG SCREEN, URINE Routine 08/18/2024 9: 23 AM CDT Acromioclavicular joint injury, left, sequela Left shoulder pain, unspecified chronicity XR SHOULDER LEFT 2 OR MORE VIEWS Schedule Routine, Read Routine (OP Routine) 07/22/2024 4:17 PM CDT Acromioclavicular joint injury, left, sequela from Last 3 Months Results * WV AN ELECTIVE SUPRAGLOTTIC AIRWAY, WV AN PROCEDURE PLACEHOLDER (08/20/2024 10:12 AM CDT) Narrative Polly Pugh CRNA - 08/20/2024 10:12 AM CDT Polly Pugh CRNA 08/20/2024 10:15 AM Airway Patient location: OR Urgency: elective Indications for airway management: anesthesia Difficult airway: no Emergent airway documentation: Risks and benefits discussed: yes Consent obtained: yes Consent given by: patient Airway prep: Preoxygenated: yes Mask difficulty assessment: 0 - not attempted Spontaneous ventilation during airway: absent Sedation level during airway: GA Final airway details: Final airway type: supraglottic airway Final supraglottic airway: unique SGA size: 5 Number of attempts: 1 Ventilation between attempts: none Result [facility] Eufemia Marion MD ANESTHESIA ORDERABLES Fi nal Result * WV AN PROCEDURE PLACEHOLDER (08/20/2024 9:53 AM CDT) Eufemia Reddy MD - 08/20/2024 9:53 AM CDT Eufemia Marion MD 08/20/2024 9:53 AM Peripheral Block Patient location during procedure: pre-op holding Reason for block: post-op pain management per surgeon request Block type: single shot Laterality: left Block type: intercostobrachial nerve block Procedure prep: Preprocedure checklist: patient identified, procedure contraindications assessed, site marked, procedure consent, surgical consent, IV checked, risks, benefits and alternatives discussed, monitors and equipment checked and timeout performed Patient position: sitting Procedure performed while patient: sedate with meaningful contact Monitoring: oximetry Supplemental O2: nasal cannula Prep solution: chlorhexidine/alcohol Peripheral nerve block: Technique: landmark(s) Needle type: short-bevel Needle gauge: 25G. Needle length: 50 mm Injection assessment: injection made incrementally with constant monitoring, negative aspiration for heme, no paresthesias noted, normal resistance to injection and see flowsheet for medication details Assessment: Block success: full evaluation pending Events: patient tolerated procedure well with no complications Result [facility] Eufemia Marion MD ANESTHESIA ORDERABLES Fi nal Result * WV AN PROCEDURE PLACEHOLDER (08/20/2024 9:53 AM CDT) Eufemia Reddy MD - 08/20/2024 9:53 AM CDT Eufemia Marion MD 08/20/2024 9:53 AM Peripheral Block Patient location during procedure: pre-op holding Reason for block: post-op pain management per surgeon request Ultrasound image in chart or stored: yes Block type: single shot Laterality: left Block type: brachial plexus - interscalene Procedure prep: Preprocedure checklist: patient identified, procedure contraindications assessed, site marked, procedure consent, surgical consent, IV checked, risks, benefits and alternatives discussed, monitors and equipment checked and timeout performed Patient position: sitting and head of bed elevated Procedure performed while patient: sedate with meaningful contact Monitoring: oximetry Supplemental O2: nasal cannula Prep solution: chlorhexidine/alcohol Skin infiltrated with lidocaine 1%: yes Peripheral nerve block: Technique: ultrasound guided Needle type: short-bevel and echogenic Needle gauge: 21 G Needle length: 80 mm Injection assessment: injection made incrementally with constant monitoring, local visualized surrounding nerve on ultrasound, negative aspiration for heme, no paresthesias noted, normal resistance to injection and see flowsheet for medication details Assessment: Block success: full evaluation pending Events: patient tolerated procedure well with no complications Additional comments: Motor function intact post block, biceps, triceps, trapezius, deltoid, cold header. Eufemia Marion MD ANESTHESIA ORDERABLES Fi nal Result * Drug screen, urine (08/18/2024 9:23 AM CDT) Urine Nivia Dempsey MD LAB URINE ORDERABLES Final Result EXTERNAL LAB * XR Shoulder Left 2 or More [...] al Result from Last 3 Months Insurance [facility] Care Teams Kosher Dietary Service Manager Relationship Specialty Start Date End Date Harris Fagan DO [address] [place] [address] PCP - General Family Medicine 09/26/23 Rose Laureano Mineral Industry Teacher Addiction Medicine 03/08/20
--- OUTSIDE RECORDS SUMMARY | 2024-08-24 21:05 | XMS_ITS | Clinical Summary ---
Author Organization [facility] Address [address] [place] [address] Care Team Providers Care [place] [place] Consultant Name Role Phone Rose Laureano Unavailable Unavailable [...] sequela 08/20/2024 Acromioclavicular joint injury, left, sequela Encounters Date Type Department Care Team Description 08/20/2024 10:15 AM CDT - 08/20/2024 1:00 PM CDT Surgery [facility] [address] [place] [id number] Nivia Dempsey MD Left Shoulder Acromioclavicular Joint Reconstruction with ALLOgraft 08/20/2024 10:05 AM CDT Anesthesia Event [facility] [address] [place] [id number] Eufemia Marion MD Botkin, Amanda Marie, NP 08/20/2024 6:59 AM CDT - 08/20/2024 2:51 PM CDT Hospital Encounter [facility] [address] [place] [address] Nivia Dempsey MD Acromioclavicular joint injury, left, sequela (Primary Dx); AC separation, type 3, left, sequela Discharge Disposition: Discharge to home or self care 08/13/2024 Telephone [facility] Orthopaedic Surgery [address] [place] [address] 2nd [address] [place] [address] Nivia Dempsey MD 07/22/2024 4:10 PM CDT - 07/22/2024 11:59 PM CDT Hospital Encounter [facility] Radiology at the Orthopedic [address] [address] Acromioclavicular joint injury, left, sequela Discharge Disposition: Discharge to home or self care 07/22/2024 3:30 PM CDT Office Visit [facility] Orthopaedic Surgery [address] 2[address] [place] [address] Nivia Dempsey MD Acromioclavicular joint injury, left, sequela (Primary Dx) 06/05/2024 Telephone [facility] Orthopaedic Surgery [address] [facility] 12th [place] [address] [place] [address] Nivia Dempsey MD from Last 3 Months Medical History Medical [...] on file 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 Gender Identity Male 07/19/2024 8:05 PM CDT [...] 07/30/2024 3:45 PM CDT Plan of Treatment Health Maintenance Due Date Last Done Comments [...] on patient's age to complete this topic Medical Devices Implanted Type Area Relocation Counselor Device Identifier Shelf Expiration Date Model / Serial / Lot Allosource Allograft Frozen Irradiate Graft Soft Tissue Semitendinosus [id number] - [id number] Implanted:Qty: 1 on 08/20/2024 by Nivia Dempsey MD at [facility] Left: Acromial Process Allosource 07/21/2029 [id number] / / [id number] Procedures Procedure Name Priority Date/Time Associated Diagnosis Comments MN AN PROCEDURE PLACEHOLDER Routine 08/20/2024 10:12 AM CDT MN AN ELECTIVE SUPRAGLOTTIC AIRWAY Routine 08/20/2024 10:12 AM CDT RECONSTRUCTION ACROMIOCLAVICULAR JOINT 08/20/2024 10:08 AM CDT Acromioclavicular joint injury, left, sequela Special Needs Beach Chair with Trimano, Mini C-Arm, Arthrex, Semi-T Allograft, Breg Sling Shot with Pillow MN AN PROCEDURE PLACEHOLDER Routine 08/20/2024 9:53 AM CDT MN AN PROCEDURE PLACEHOLDER Routine 08/20/2024 9:53 AM CDT DRUG SCREEN, URINE Routine 08/18/2024 9: 23 AM CDT Acromioclavicular joint injury, left, sequela Left shoulder pain, unspecified chronicity XR SHOULDER LEFT 2 OR MORE VIEWS Schedule Routine, Read Routine (OP Routine) 07/22/2024 4:17 PM CDT Acromioclavicular joint injury, left, sequela from Last 3 Months Results * MN AN ELECTIVE SUPRAGLOTTIC AIRWAY, MN AN PROCEDURE PLACEHOLDER (08/20/2024 10:12 AM CDT) Polly Franco CRNA - 08/20/2024 10:12 AM CDT Polly [...] of attempts: 1 Ventilation between attempts: none Eufemia Marion MD ANESTHESIA ORDERABLES nal Result * MN AN PROCEDURE PLACEHOLDER (08/20/2024 9:53 AM CDT) [...] tolerated procedure well with no complications Result [facility] Eufemia Marion MD ANESTHESIA ORDERABLES Fi nal Result * MN AN PROCEDURE PLACEHOLDER (08/20/2024 9:53 AM CDT) Narrative Eufemia Marion MD - 08/20/2024 9:53 AM CDT Eufemia [...] intact post block, biceps, triceps, trapezius, deltoid, bpm architect. Result [facility] Eufemia Marion MD ANESTHESIA ORDERABLES Fi nal Result * Drug screen, urine (08/18/2024 9:23 AM CDT) Urine Result [facility] Nivia Dempsey MD LAB URINE ORDERABLES Final [...] al Result from Last 3 Months Insurance [facility] Care Teams [place] [place] Consultant Relationship Specialty Start Date End Date Harris Fagan DO [address] [place] [address] PCP - General Family Medicine 09/26/23 Rose Laureano Ad Clerk Addiction Medicine 03/08/20
--- NOTE | 2024-08-24 21:11 | ED_ITS ---
HPI - Chest Pain General Chief Complaint: Chest Pain Stated Complaint: chest pain and pressure Time Seen by Provider: 08/24/24 21:05 Source: patient Mode of arrival: EMS Limitations: no limitations History of Present Illness HPI narrative: 34 year old male presents to the Emergency Department via EMS. Patient complains of chest pains with shortness of breath. States pain radiates to left neck and down left arm. Has had pains for past year. Has been seen at multiple facilities for same. Had left shoulder surgery several days ago. complaint: chest pain Onset (ago): year(s) (past year) Prior episodes: Yes Pain location: substernal and left chest Pain radiation: left arm and neck Quality: heaviness Relieving factors: nothing Exacerbating factors: nothing Related Data Allergies Allergy/AdvReac Type Severity Reaction Status Date / Time No Known Allergies Allergy Verified 08/07/24 13:21 Review of Systems 2 Review of Systems: All systems reviewed & are unremarkable except as noted in HPI and below Constitutional: Constitutional: Reports as per HPI, Reports no additional constitutional complaints, Denies chills and Denies fever(s) Eyes: Eyes: Reports as per HPI and Reports no additional eye complaints ENT: Reports system reviewed and no additional complaints, except as documented Cardiovascular: Cardiovascular: Reports as per HPI, Reports no additional cardiovascular complaints and Reports chest pain Respiratory: Respiratory: Reports as per HPI, Reports no additional respiratory complaints and Reports dyspnea Gastrointestinal: Gastrointestinal: Reports as per HPI, Reports no additional gastrointestinal complaints, Denies abdominal pain, Denies diarrhea, Denies nausea and Denies vomiting Genitourinary: Genitourinary: Reports no additional male genitourinary complaints Musculoskeletal: Musculoskeletal: Reports no additional musculoskeletal complaints Integumentary/Breasts: Skin/Breast: Reports system reviewed and no additional complaints, except as docu Neurologic: Reports system reviewed and no additional complaints, except as documented Endocrine: Endocrine: Reports no additional endocrine complaints Hematologic/Lymphatic: Hematologic/Lymphatic: Reports no additional hematologic/lymphatic complaints Allergic/Immunologic: Allergic/Immunologic: Reports no additional allergic/immunologic complaints PMFSH Past Medical History Medical History Pre-op exam No active medical problems Surgical History Surgical History No history of previous surgery Social History Social History Smoking packs per day: 1 Smoking cigarettes per day: 20.0 Years smoked: 17 Smoking pack-years: 17.00 Smoking status: Current every day smoker Tobacco type: cigarettes and e-cigarettes/vaping Gender identity (if verbalized by the patient): Male Exam 2 Const: General: healthy appearing Nutritional Appearance: well nourished Orientation/consciousness: patient oriented x3 Limitations: no limitations HENMT: Head: normal to inspection Ears: external ears normal F jazmin/Nose/Sinus: Normal external nose present Face and sinus: normal facial exam Mouth: Yes Normal oral and palatal mucosa present Eyes: Pupils: Equal, round and reactive pupils present EOM: EOMs intact bilaterally Direct Ophthalmoscopy: no photophobia Neck: Neck: normal visual inspection Chest: Chest palpation & inspection: normal inspection of the chest and no tenderness Resp: Effort & Inspection: normal respiratory effort Auscultation: clear to auscultation bilaterally Cardio: Rate: regular rate Rhythm: regular rhythm Heart sounds: no murmurs GI: Inspection: non-distended GI Palp: Yes Soft to palpation and No Tenderness to palpation present (GI) : General: Yes bladder normal to palpation Back/Spine/Pelvis: Back: no CVA tenderness Skin: General skin exam: normal color Rashes: no rashes Wounds: no wounds Neuro: General: patient oriented x3 Cranial nerves: Yes Nystagmus not present Speech: normal speech Other: grossly normal Extrem: General: normal to inspection Other: post op left shoulder Course Course Emergency Course: 34 y/o male arrives to the ED via EMS c/o substernal chest pain with radiation to left neck and left arm. Has been having for past year. Some shortness of breath. Has been evaluated at multiple facilities. Had left shoulder surgery several days ago. PE: post op left shoulder, o/w no acute findings CBC: H/H 14.3/43.3, Plt 293; wbc 6.4 with 55 S, 29 L, 11 M CMP: Na 137, K 3.9, Cl 106, CO2 27, Glc 99, BUN 25, Cr 0.79; LFT's normal TNI: <0.012 CPK: 363 EKG: NSR, 61, NAC AB.4/ 78/ 35/ 21, 95% RA D-dimer: 0.62 Lactic: 0.9 M.1 ESR: 16 CRP: 1.4 UA: unremarkable UDS: +THC CTA Chest: no PE. Possible R heart strain /pulmonary HTN. 1.4 cm hyperenhancing spot liver. Asymmetric gynecomastia. Rec mamogram. 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 Discussed further management. patient voices understanding and agreement. Instructions Vital Signs Vital signs: Vital Signs Temperature 36.6 C 08/24/24 21:05 Pulse Rate 72 08/24/24 21:05 Respiratory Rate 18 08/24/24 21:05 Blood Pressure 158/100 H 08/24/24 21:05 Pulse Oximetry 100 08/24/24 21:05 Oxygen Delivery Room Air 08/24/24 21:05 Temperature 36.6 C 08/24/24 21:05 Pulse Rate 72 08/24/24 21:05 Respiratory Rate 18 08/24/24 21:05 Blood Pressure 158/100 H 08/24/24 21:05 Pulse Oximetry 100 08/24/24 21:05 Oxygen Delivery Room Air 08/24/24 21:05 MDM - Chest Pain Lab Data 08/24/24 21:28 08/24/24 21:28 Labs: Lab Results 08/24/24 08/24/24 Range/Units 21:28 21:55 WBC 6.4 (4.8-10.8) K/mm3 RBC 4.94 (4.70-6.10) M/mm3 Hgb 14.3 (14.0-18.0) g/dL Hct 43.3 (40.0-54.0) % MCV 87.7 (78.0-102.0) fL MCH 28.9 (27.0-31.0) pg MCHC 33.0 (32-36) g/dL RDW 13.2 (11.6-14.4) % Plt Count 293 (150-420) K/mm3 MPV 8.9 (8.7-11.0) fl Immature Gran % (Auto) 0.5 H (0.0-0.0) % Neut % (Auto) 55.0 (50.0-70.0) % Lymph % (Auto) 29.2 (18.0-42.0) % Darke % (Auto) 10.6 (2.0-11.0) % Eos % (Auto) 4.2 (1.0-6.0) % Baso % (Auto) 0.5 (0.0-1.0) % Lymph # (Auto) 1.88 (1.10-4.50) K/mm3 Darke # (Auto) 0.68 (0.10-0.90) K/mm3 Eos # (Auto) 0.27 (0.02-0.50) K/mm3 Baso # (Auto) 0.03 (0.00-0.10) K/mm3 Abs Immat Gran (auto) 0.03 H (0.00-0.00) K/mm3 Absolute Neuts (auto) 3.54 (1.70-7.20) K/mm3 Absolute Nucleated RBC 0.00 (0.00-0.00) K/mm3 Nucleated RBC % 0.0 (0-0.0) % ESR 16 H (0-15) mm/hr D-Dimer 0.62 H (0.19-0.50) mg/L Methemoglobin 0.4 (0-1.5) % Sodium 137 (137-145) mmol/L Potassium 3.9 (3.4-5.0) mmol/L Chloride 106 (98-107) mmol/L Carbon Dioxide 27 (22-30) mmol/L Anion Gap 4 (4-12) mmol/L BUN 25 H (9-20) mg/dL Creatinine 0.79 (0.7-1.3) mg/dL Estim Creat Clear Calc Not Reportable Estimated GFR > 60 (59 - ) Glucose 99 (65-110) mg/dL Calculated Osmolality 288 (285-295) mOsm/kg Lactic Acid 0.9 (0.4-2.0) mmol/L Calcium 9.2 (8.4-10.2) mg/dL Magnesium 2.1 (1.6-2.3) mg/dL Total Bilirubin 0.5 (0.2-1.3) mg/dL AST 50 (17-59) U/L ALT 37 (6-50) U/L Alkaline Phosphatase 55 (38-126) U/L Total Creatine Kinase 363 H (55-170) U/L Troponin I < 0.012 (0.000-0.034) ng/mL C-Reactive Protein 1.4 H (<1.0) mg/dL Total Protein 6.7 (6.3-8.2) g/dL Albumin 4.0 (3.5-5.1) g/dL Urine Color Yellow (Yellow) Urine Appearance Clear (Clear) Urine pH 6.0 (5.0-8.0) Ur Specific [place] >= 1.030 H (1.010-1.020) Urine Protein Negative (Negative) Urine Glucose (UA) Negative (Negative) Urine Ketones Negative (Negative) Ur Blood (Man) Negative (Negative) Urine Nitrate Negative (Negative) Urine Bilirubin Negative (Negative) Urine Urobilinogen 0.2 (0.2-1.0) mg/dL Ur Leukocyte Esterase Negative (Negative) Urine Opiates Screen Negative (Negative) Urine Methadone Screen Negative (Negative) Ur Barbiturates Screen Negative (Negative) Ur Phencyclidine Scrn Negative (Negative) Ur Amphetamine Screen Negative (Negative) U Benzodiazepines Scrn Negative (Negative) Urine Cocaine Screen Negative (Negative) U Cannabinoids Screen Positive A (Negative) ABG Data ABG results: 08/24/24 21:28 Puncture Site Right radial ABG pH 7.40 ABG pCO2 35.5 ABG pO2 78.1 L ABG PO2/FiO2 Ratio Not Reportable ABG HCO3 21.3 L ABG O2 Saturation 95.0 ABG O2 Content 19.7 ABG Base Excess -2.9 L A-a Gradient Not Reportable Oxyhemoglobin 92.6 L Carboxyhemoglobin 2.1 H Reduced Hemoglobin 4.9 H O2 Delivery Device Room air O2 Liters/Min 0.0 Discharge Plan Discharge Clinical Impression: Atypical chest pain, Gynecomastia, Pulmonary hypertension, Lesion of liver Patient Disposition: Home Condition: Stable Instructions: Pulmonary Arterial Hypertension (ED), Noncardiac Chest Pain (ED), Gynecomastia (ED) Additional Instructions: Follow up with your Primary Care Provider Recommended Echocardiogram, Mammogram, dedicated liver scan Take medication as prescribed Patient Language: Welsh Prescriptions: New tramadol 50 mg tablet 50 mg PO Q6H PRN (Reason: pain) Qty: 20 0RF No Action montelukast [Singulair] 10 mg tablet 10 mg PO DAILY Qty: 90 0RF Follow-up/Referrals: Buschling,Harris P., DO [Primary Care Provider] - Time of Disposition: 22:59
[2024-08-24 21:33] LABS: Basophils Absolute Auto 0.03 K/mm3 (0.00-0.10); Basophils Percent Auto 0.5 % (0.0-1.0); Eosinophils Absolute Auto 0.27 K/mm3 (0.02-0.50); Eosinophils Percent Auto 4.2 % (1.0-6.0); Hematocrit 43.3 % (40.0-54.0); Hemoglobin 14.3 g/dL (14.0-18.0); Immature Granulocyte Absolute 0.03 K/mm3 (0.00-0.00); Immature Granulocyte Percent A 0.5 % (0.0-0.0); Lymphocytes Absolute Auto 1.88 K/mm3 (1.10-4.50); Lymphocytes Percent Auto 29.2 % (18.0-42.0); Mean Corpuscular Hemoglobin 28.9 pg (27.0-31.0); Mean Corpuscular Volume 87.7 fL (78.0-102.0); Mean Platelet Volume 8.9 fl (8.7-11.0); Monocytes Absolute Auto 0.68 K/mm3 (0.10-0.90); Monocytes Percent Auto 10.6 % (2.0-11.0); Neutrophils Absolute Auto 3.54 K/mm3 (1.70-7.20); Platelet Count Result 293 K/mm3 (150-420); Red Blood Count 4.94 M/mm3 (4.70-6.10); Red Cell Distribution Width 13.2 % (11.6-14.4); White Blood Count 6.4 K/mm3 (4.8-10.8)
[2024-08-24 21:46] LABS: Base Excess ABG -2.9 mmol/L (0-2); Carboxyhemoglobin 2.1 % (0-1.5); HCO3 ABG 21.3 mmol/L (23-29); Methemoglobin ABG 0.4 % (0-1.5); Oxygen Content ABG 19.7 %vol (16.0-22.0); Oxyhemoglobin 92.6 % (94-100); PCO2 ABG 35.5 mmHg (35-45); PO2 ABG 78.1 mmHg (80-90); Reduced Hemoglobin 4.9 % (0-1.5)
[2024-08-24 21:47] LABS: Alanine Aminotransferase 37 U/L (6-50); Alkaline Phosphatase 55 U/L (38-126); Anion Gap 4 mmol/L (4-12); Aspartate Amino Transferase 50 U/L (17-59); Bilirubin,Total 0.5 mg/dL (0.2-1.3); Blood Urea Nitrogen 25 mg/dL (9-20); Calcium 9.2 mg/dL (8.4-10.2); Carbon Dioxide 27 mmol/L (22-30); Chloride 106 mmol/L (98-107); Creatine Kinase 363 U/L (55-170); D Dimer 0.62 mg/L (0.19-0.50); Device ROOM AIR; Estimated Glomerular Filt Rate > 60; Glucose 99 mg/dL (65-110); Lactic Acid Reflex 0.9 mmol/L (0.4-2.0); Magnesium 2.1 mg/dL (1.6-2.3); Modified Allen's Test Pass; Osmolality Calculated 288 mOsm/kg (285-295); Potassium 3.9 mmol/L (3.4-5.0); Site Drawn RIGHT RADIAL; Sodium 137 mmol/L (137-145); Total Protein 6.7 g/dL (6.3-8.2)
[2024-08-24 21:56] LABS: CRP 1.4 mg/dL (<1.0)
[2024-08-24 21:58] LABS: Troponin I < 0.012 ng/mL (0.000-0.034)
[2024-08-24 22:07] LABS: Add Urine Microscopic? NO; Appearance Urine Clear (Clear); Bilirubin Urine Negative (Negative); Blood Urine Negative (Negative); Color Urine Yellow (Yellow); Glucose Urine UA Negative (Negative); Ketones Urine Negative (Negative); Leukocyte Esterase Ur Negative (Negative); Nitrate Urine Negative (Negative); Protein Urine Negative (Negative); Specific Grav Ur >= 1.030 (1.010-1.020); Urobilinogen Urine 0.2 mg/dL (0.2-1.0)
[2024-08-24 22:25] LABS: Amphetamine Screen Urine Negative (Negative); Barbiturate Screen Urine Negative (Negative); Benzodiazepines Screen Urine Negative (Negative); Cannabinoid Screen Urine Positive (Negative); Cocaine Screen Urine Negative (Negative); Methadone Screen Urine Negative (Negative); Opiate Screen Urine Negative (Negative); Phencyclidine Screen Urine Negative (Negative)
[2024-08-24 22:37] LABS: Erythrocyte Sedimentation Rate 16 mm/hr (0-15)
--- NOTE | 2024-08-24 22:52 | PC.NURSE ---
Dressing change done to Rt shoulder post surgical site before d/c. New dressing applied.
[2024-08-24] MEDS: traMADol HCL (*CRX) 50 MG TABLET PO (23:06)
[2024-08-24 23:18] VITALS: BP 140/86; PULSE 81; RESP 18; TEMP 36.4; O2SAT 98
== END 2024-08-24 23:18 | disposition home or self-care (01) ==
PROVIDERS: Emergency Provider Emergency Medicine; PCP Family Medicine
DX: R07.89 Other chest pain (principal); N62 Hypertrophy of breast; I27.20 Pulmonary hypertension, unspecified; K76.9 Liver disease, unspecified; F17.210 Nicotine dependence, cigarettes, uncomplicated
CPT/HCPCS: 36415; 36600; 71275; 80053; 80307; 81003; 82375; 82550; 82805; 83050; 83605; 83735; 84484; 85018; 85025; 85380; 85652; 86140; 93005; 99284; A9270; Q9967

== ENCOUNTER 2024-11-10 12:30 | Outpatient (RCR) | payer OTHER, SELFPAY ==
--- NOTE | 2024-10-06 16:19 | OPREHPOC ---
Outpatient Therapy Plan of Care This is a Multidisciplinary Plan of Care that may contain components documented by all disciplines (PT, OT, and ST.) PT Problem 1 PT Problem #1 Knowledge Deficit PT Goal 1 Goal / Goal Update 1. Patient to demonstrate independence with HEP for improved self-reliance of symptom management. Target Visit 4 PT Problem 2 PT Problem #2 Pain PT Goal 1 Goal / Goal Update 1. Patient to decrease subjective reports of pain to <3/10 with active motion for improved ADL tolerance. Target Visit 12 PT Problem 3 PT Problem #3 Impaired Range of Motion PT Goal 1 Goal / Goal Update 1. Patient to demonstrate an increase of L shoulder active range of motion of 0-165 degrees to improve the ability to reach overhead. 2. Patient to demonstrate an increase of Left shoulder functional internal rotation/external rotation equal to RUE. Target Visit 12 PT Problem 4 PT Problem #4 Impaired Strength PT Goal 1 Goal / Goal Update 1. Pt will demonstrated the ability to lift 10lbs overhead with appropriate mechanics and no upper trapezius compensations. 2. Pt will demonstrate the ability to hold the push up starting position and hold for >10 secs. 3. Patient to demonstrate gross L shoulder strength >=5/5 for improved functional stability required for overhead Target Visit 12
--- NOTE | 2024-10-06 16:19 | PTOPEVAL1 ---
Assessment and note entered by Donavan Guerrero PT Evaluation Information Assessment Status Evaluation Diagnosis L shoulder AC joint reconstruction ICD-10 Condition Codes (PT) Pain in left shoulder M25.512 Other ICD-10 Condition Codes ( Z48.81 PT) Onset 08/20/2024 Subjective Information Patient presents status post case L shoulder AC joint reconstruction on of August [address] Dempsey. Patient reports no complications with surgery. Pt is currently wearing a sling but is wearing it less often and feels comfortable outside of the sling. Pt has been managing pain with Tylenol and ice. 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 Reported Pain Level Pain Score 1: Self Report Assessment PT Clinical Summary Patient presents to physical therapy following a L shoulder AC joint reconstruction. Patient demonstrates post surgical weakness, pain, decreased mobility, abnormal posture, , and decreased flexibility that limit their ability to perform activities of daily living and functional movements. Patient will benefit from skilled physical therapy to address the above listed deficits and return to prior level of function. Home exercise program instructed and written handout provided, exercises tolerated well with no adverse effects to note post-session. Patient was educated on importance of adherence to home exercise program. Patient was also educated on anatomy, prognosis, home modalities, and plan of care. Plan of Care Interventions Electrical Stimulation,Manual Therapy,Neuro Re- education,Therapeutic Activities,Therapeutic Exercise,Other PT Services Indicated Yes These treatments will address the objective and functional deficits as defined above. The patient will be advanced safely and appropriately in order for the patient to progress towards his/her prior level of function. Additional exercises will be introduced and as well as a comprehensive home exercise program upon discharge, if needed, ?to ensure carryover of functional gains achieved in the clinic. This treatment plan has been reviewed and agreement upon by the patient.
--- NOTE | 2024-10-20 13:17 | PCPTNOTE ---
Pt called to cancel his appointment as he didn't have a ride.
--- NOTE | 2024-10-23 09:54 | PCPTNOTE ---
pt called to move appt down due to ride issues, once moved down pt was still unable to coordinate transportation and cancelled todays appt
--- NOTE | 2024-11-06 13:01 | PCPTNOTE ---
pt 8 minutes late to session today
--- NOTE | 2024-11-10 13:22 | PTOPDC ---
Assessment and note entered by Donavan Guerrero PT Evaluation Information Assessment Status Discharge Diagnosis L shoulder AC joint reconstruction ICD-10 Condition Codes (PT) Pain in left shoulder M25.512 Other ICD-10 Condition Codes ( Z48.81 PT) Onset 08/20/2024 Subjective Information Patient states he feels 80% recovered he states he just doesn't feel as strong in the L arm compared to the L. Pt notes he would like if the lump on his shoulder would go down. Pt states he thinks he needs more strength but coming to therapy causes him more stress trying to get transportation so he would like to continue strengthening his shoulder at home. Pt notes he returns to see surgeon Nov 18 . Reported Pain Level Pain Score 0: Self Report Assessment PT Clinical Summary Patient's L shoulder has improved overall as evidenced by advancements in symptoms, mobility, strength, and overall functional use of the extremity. Patient has met all therapy goals and is pleased with progress made towards the remaining goals. Patient to discharge from physical therapy this date and continue with updated home exercise program as instructed. Patient to contact physical therapist or primary care provider if questions or concerns arise. Plan of Care PT Services Indicated No
== END 2024-11-11 08:22 | disposition home or self-care (01) ==
LOC: ANHGOSHPT 12:30
PROVIDERS: PCP Family Medicine; Visit Provider Orthopaedic Surgery
DX: S49.92XS Unspecified injury of left shoulder and upper arm, sequela (principal)
CPT/HCPCS: 97014; 97110; 97112; 97140; 97161; 97530; G0283